=== PATIENT | female | born 1945 | race Caucasian/White ===

== ENCOUNTER → 2023-11-06 | Day surgery (SDC) | payer MEDICARE, OTHER ==
[~2023-11-06] MED LIST: ACETAMINOPHEN 1000 MG/100 ML IV ONE; CARVEDILOL12.5 MG PO; CRESTOR40 MG PO; DEXAMETHASONE SOD PHOS 10 MG/1 ML VIAL ONE; DEXMEDETOMIDINE HCL 200 MCG/2 ML VIAL ONE; EPINEPHRINE HCL 1:1000 1ML 1 MG/ML AMP ONE; FAMOTIDINE 20 MG/2 ML VIAL IV ONE; FENTANYL CITRATE/PF 100MCG/2 ML INJ ONE; LACTATED RINGER'S 1,000 ML ONE; LIDOCAINE 1% W/EPINEPHRINE 20 ML VIAL ONE; LIDOCAINE HCL (LTA) 4 ML SOLN ONE; LIDOCAINE HCL 2% LOCAL INJ 5 ML SDV VIAL INJ ONE; LOSARTAN-HCTZ1 EACH PO; ONDANSETRON HCL INJ 2MG/ML 2ML 2 MG/ML VIAL ONE; PROPOFOL IV EMULSION 10 MG/ML 20 ML VIAL ONE; QUESTRAN PACKET4 GM PO; ROCURONIUM BROMIDE 10 MG/ML 5ML VIAL IV ONE; SEVOFLURANE INHAL SOLN 250 ML PEN BTL ONE; SUGAMMADEX SODIUM 200 MG/2 ML VIAL IV ONE
[2023-11-06] MEDS: ACETAMINOPHEN/CODEINE 300MG - 30MG TAB ONE (14:17)
[2023-11-06 14:30] VITALS: BP 146/75; PULSE 64; RESP 17; O2SAT 98
== END | disposition home or self-care (01) ==
LOC: OR 06:57
PROVIDERS: ATTEND Otolaryngology Otolaryngology/Facial Plastic Surgery
DX: K12.39 Other oral mucositis (ulcerative) (principal); K13.21 Leukoplakia of oral mucosa, including tongue; I10 Essential (primary) hypertension; E78.5 Hyperlipidemia, unspecified; Z87.891 Personal history of nicotine dependence; I44.7 Left bundle-branch block, unspecified; M06.9 Rheumatoid arthritis, unspecified; M19.91 Primary osteoarthritis, unspecified site; Z79.899 Other long term (current) drug therapy
CPT/HCPCS: 31526; 31622; 41112; 43191; 71046; 88305; 93005; J0131; J0171; J1100; J2001; J2405; J2704; J3010; J7121